=== PATIENT | female | born 1960 | race Two or more races ===

== ENCOUNTER 2018-06-03 12:18 | Emergency (ER) | payer OTHER ==
[~2018-06-03] VITALS: Ht 172.7 cm; Wt 115.2 kg
== END 2018-06-03 18:10 | disposition home or self-care (01) ==
LOC: ER 12:18
DX: M79.662 Pain in left lower leg (principal); M54.16 Radiculopathy, lumbar region; M54.5 Low back pain

== ENCOUNTER 2022-04-21 08:55 | Emergency (ER) | payer OTHER ==
[~2022-04-21] VITALS: Ht 172.7 cm; Wt 113.4 kg
[~2022-04-21 08:55] MED LIST: ADVAIR 2501 DISK W/1 IH; ALBUTEROL17 G1 IH; ATACAND HCT 161 EACH; ATACAND4 MG PO; ATROVENT21 MCG NS; BREO ELLIPTA 21 EACH; DICLOFENAC POTA50 MG; MEDROL2 MG PO; METFORMIN HCL500 M2; PHENAGIL TABLE1 EACH; PREVACID15 MG PO; PROVENTIL0.5 ML/2.5 IH; PULMICORT1 MG/2 ML IH; SINGULAIR4 MG PO; XYZAL2.5 MG/5 M
[2022-04-21] MEDS ORDERED: TELMISARTAN40 MG (09:08)
== END 2022-04-21 12:12 | disposition home or self-care (01) ==
LOC: ER 08:55
DX: J02.8 Acute pharyngitis due to other specified organisms (principal); B96.89 Other specified bacterial agents as the cause of diseases classified elsewhere